=== PATIENT | male | born 1940 | race Caucasian/White ===

== ENCOUNTER 2017-07-16 07:09 | Day surgery (SDC) | payer OTHER, MEDICARE ==
[2017-07-15 14:52] VITALS: BMI 23.2
[2017-07-16] MEDS ORDERED: LIDOCAINE HCL/PF 2% SDV 5ML VIAL ONE (08:18)
[2017-07-16] MEDS ORDERED: PROPOFOL 20 ML ONE ×2 (08:18)
[2017-07-16 09:01] VITALS: TEMP 97.7
[2017-07-16 13:17] VITALS: BP 148/60; PULSE 58
--- NOTE | 2017-07-17 17:20 | PATH ---
Surgical Pathology Report Patient Name: CHELSEA DORANTES [facility]. Rec. #: [id number] /Age/Gender: 1940 (Age: 76) / M Account: [id number] Location: [facility]-ENDOSCOPY Taken: 07/16/2017 Received: 07/16/2017 Reported: 07/17/2017 Physicians: Everardo Hargrove M.D. Specimen(s) Received POLYP SIGMOID Clinical History Diverticular disease of the colon, history of adenoma Grade 1 hemorrhoids, severe universal diverticulosis, sigmoid polyp Final Diagnosis SIGMOID COLON, POLYP, BIOPSY: HYPERPLASTIC POLYP. Electronically Signed Colleen Cross M.D. Gross Description Received in formalin, labeled "biopsy sigmoid polyp" is a cervantes, irregular portion of soft tissue measuring 0.4 cm. in greatest dimension. The specimen is submitted in toto in one cassette. 07/16/201707/16/2017
== END 2017-07-16 10:00 | disposition home or self-care (01) ==
LOC: JASU-ENDO 07:09
PROVIDERS: ATTEND Internal Medicine Gastroenterology
PROC: 0DBN8ZX Excision of Sigmoid Colon, Via Natural or Artificial Opening Endoscopic, Diagnostic (ICD-10-PCS; principal; 2017-07-16 08:00)
DX: Z12.11 Encounter for screening for malignant neoplasm of colon (principal); Z86.010 Personal history of colon polyps; D12.5 Benign neoplasm of sigmoid colon; K57.30 Diverticulosis of large intestine without perforation or abscess without bleeding; K64.8 Other hemorrhoids
CPT/HCPCS: 88305-TC

== ENCOUNTER 2022-06-03 05:20 | Day surgery (SDC) | payer OTHER, MEDICARE ==
[2022-06-02 15:09] VITALS: BMI 25.2
[2022-06-03] MEDS ORDERED: EPINEPHrine 1:10,000 (P-F SYR) 1 MG/10 ML DISP.SYRIN IM ONE (12:07)
[2022-06-03 12:27] VITALS: TEMP 97.8
[2022-06-03] MEDS ORDERED: EPINEPHrine 1:10,000 (P-F SYR) 1 MG/10 ML DISP.SYRIN ONE (12:27)
[2022-06-03 13:01] VITALS: BP 124/56; PULSE 70; RESP 18
== END 2022-06-03 13:26 | disposition home or self-care (01) ==
LOC: JASU-ENDO 05:20
PROVIDERS: ATTEND Internal Medicine Gastroenterology
PROC: 3E0H8KZ Introduction of Other Diagnostic Substance into Lower GI, Via Natural or Artificial Opening Endoscopic (ICD-10-PCS; 2022-06-03)
PROC: 0DBN8ZX Excision of Sigmoid Colon, Via Natural or Artificial Opening Endoscopic, Diagnostic (ICD-10-PCS; principal; 2022-06-03 10:30)
DX: Z12.11 Encounter for screening for malignant neoplasm of colon (principal); D12.5 Benign neoplasm of sigmoid colon; K57.30 Diverticulosis of large intestine without perforation or abscess without bleeding; K55.20 Angiodysplasia of colon without hemorrhage; Z86.010 Personal history of colon polyps
CPT/HCPCS: 88305-TC

== ENCOUNTER 2023-09-29 04:36 | Day surgery (SDC) | payer OTHER, MEDICARE ==
[2023-09-23 15:19] VITALS: BMI 25.0
[2023-09-29 12:25] VITALS: BP 122/59; PULSE 62; RESP 14
[2023-09-29 12:27] VITALS: TEMP 98.7
== END 2023-09-29 12:51 | disposition home or self-care (01) ==
LOC: JASU-ENDO 04:36
PROVIDERS: ATTEND Internal Medicine Gastroenterology
PROC: 0DB78ZX Excision of Stomach, Pylorus, Via Natural or Artificial Opening Endoscopic, Diagnostic (ICD-10-PCS; 2023-09-29)
PROC: 0DB68ZX Excision of Stomach, Via Natural or Artificial Opening Endoscopic, Diagnostic (ICD-10-PCS; 2023-09-29)
PROC: 0DB48ZX Excision of Esophagogastric Junction, Via Natural or Artificial Opening Endoscopic, Diagnostic (ICD-10-PCS; principal; 2023-09-29 10:15)
DX: K29.50 Unspecified chronic gastritis without bleeding (principal); K44.9 Diaphragmatic hernia without obstruction or gangrene; K22.2 Esophageal obstruction; K21.00 Gastro-esophageal reflux disease with esophagitis, without bleeding; D50.9 Iron deficiency anemia, unspecified; I10 Essential (primary) hypertension
CPT/HCPCS: 88305-TC; 88342-TC

== ENCOUNTER 2024-11-18 12:50 | Inpatient (IN) | payer OTHER, MEDICARE ==
[2024-11-18 14:26] LABS: CHLORIDE 106 mmol/L (98-107); POTASSIUM 4.1 mmol/L (3.5-5.1); SODIUM 137 mmol/L (136-145)
[2024-11-18 14:30] LABS: CALCIUM 8.9 mg/dL (8.5-10.1)
[2024-11-18 14:31] LABS: ALBUMIN 3.8 g/dl (3.4-5.0); ANION GAP 6 mmol/L (4-13); BLOOD UREA NITROGEN 31.4 mg/dL (7-18); CO2 25 mmol/L (21-32)
[2024-11-18 14:34] LABS: SGOT/AST 50 U/L (15-37); SGPT/ALT 18 U/L (13-61)
[2024-11-18 14:35] LABS: N-TERMINAL BNP 450.7 pg/ml (5-450)
[2024-11-18 14:36] LABS: ALK PHOS 66 U/L (45-117); BASO % 1.2 % (0-2.0); BILIRUBIN,TOTAL 0.6 mg/dL (0.2-1); EOS % 1.2 % (0-4.5); HEMATOCRIT 27.4 % (35.4-49); HEMOGLOBIN 7.8 GM/dL (11.7-16.9); LYMPH % 5.4 % (8-40); MCHC 28.3 g/dl (32.0-35.9); MEAN CELL VOLUME 68.7 fl (80-96); MEAN PLT VOLUME 7.5 fl (7.5-11.1); MONO % 6.9 % (3.8-10.2); NEUT % 85.3 % (42.8-82.8); PLATELET COUNT 118 10^3/uL (134-434); RBC 3.98 M/mm3 (4.00-5.60); RDW 19.5 % (11.9-15.9); TOT PROT 7.1 g/dl (6.4-8.2); WHITE BLOOD COUNT 11.8 K/mm3 (4.0-10.0)
[2024-11-18 14:43] LABS: CREATININE 0.9 mg/dL (0.55-1.3); GLUCOSE,RANDOM 25 mg/dL (74-106); MCH 19.5 pg (25.7-33.7)
[2024-11-18] MEDS ORDERED: DEXTROSE 50%-WATER 25 GM/50 ML DISP.SYRIN ONE (14:49)
[2024-11-18] MEDS: DEXTROSE 50%-WATER - 25 GM/50 ML VIAL IVPUSH ONE ×2 (14:52)
[2024-11-18] MEDS: SODIUM CHLORIDE 0.9% 500 ML INFUS.BAG IV ONE (15:32)
[2024-11-18 15:48] LABS: ANISOCYTOSIS 2+; MACROCYTOSIS 0; OVALOCYTE 1+
[2024-11-18] MEDS ORDERED: DEXTROSE 50%-WATER - 25 GM/50 ML VIAL IVPUSH PRN (16:36)
[2024-11-18 21:04] VITALS: BMI 22.3
[2024-11-18 21:22] LABS: EOS % 2.1 % (0-4.5); HEMATOCRIT 23.8 % (35.4-49); LYMPH % 8.5 % (8-40); MCHC 28.7 g/dl (32.0-35.9); MEAN CELL VOLUME 67.3 fl (80-96); MEAN PLT VOLUME 8.1 fl (7.5-11.1); MONO % 7.9 % (3.8-10.2); NEUT % 80.5 % (42.8-82.8); PLATELET COUNT 101 10^3/uL (134-434); RBC 3.53 M/mm3 (4.00-5.60); RDW 19.3 % (11.9-15.9)
[2024-11-18 21:27] LABS: MCH 19.3 pg (25.7-33.7)
[2024-11-18 21:30] LABS: HEMOGLOBIN 6.8 GM/dL (11.7-16.9)
[2024-11-18] MEDS: D5-1/2NS+20 MEQ KCL - 20 MEQ/1,000 ML INFUS.BAG IV SCH (22:09)
[2024-11-18] MEDS: ATORVASTATIN CA 40 MG TABLET (FP) PO SCH (22:09)
[2024-11-19] MEDS ORDERED: DEXTROSE 50%-WATER 25 GM/50 ML DISP.SYRIN IVPUSH PRN
[2024-11-19] MEDS: LISINOPRIL 20 MG TABLET PO SCH (09:14)
[2024-11-19] MEDS: ASPIRIN 81 MG CHEWABLE TABLETS PO SCH (09:14)
[2024-11-19] MEDS: amLODIPine BESYLATE 10 MG TABLET (FP) PO SCH (09:14)
[2024-11-19] MEDS: PANTOPRAZOLE 20 MG TABLET PO SCH (09:14)
[2024-11-19] MEDS: metoPROLOL SUCCINATE 25 MG TAB.SR.24H (FP) PO SCH (09:14)
[2024-11-19 10:05] LABS: EOS % 5.1 % (0-4.5); HEMATOCRIT 33.3 % (35.4-49); HEMOGLOBIN 9.7 GM/dL (11.7-16.9); LYMPH % 7.1 % (8-40); MCH 21.5 pg (25.7-33.7); MCHC 29.1 g/dl (32.0-35.9); MEAN PLT VOLUME 7.1 fl (7.5-11.1); MONO % 6.9 % (3.8-10.2); NEUT % 78.9 % (42.8-82.8); PLATELET COUNT 106 10^3/uL (134-434); RDW 24.2 % (11.9-15.9); WHITE BLOOD COUNT 12.1 K/mm3 (4.0-10.0)
[2024-11-19 10:17] LABS: POTASSIUM 3.6 mmol/L (3.5-5.1)
[2024-11-19 10:19] LABS: ALBUMIN 3.6 g/dl (3.4-5.0); MAGNESIUM 1.7 mg/dL (1.8-2.4)
[2024-11-19 10:22] LABS: CREATININE 0.8 mg/dL (0.55-1.3)
[2024-11-19 10:24] LABS: TOT PROT 6.6 g/dl (6.4-8.2)
[2024-11-19 10:28] LABS: BILIRUBIN,TOTAL 2.6 mg/dL (0.2-1); CALCIUM 8.5 mg/dL (8.5-10.1)
[2024-11-20 07:28] LABS: BASO % 2.3 % (0-2.0); EOS % 9.4 % (0-4.5); HEMATOCRIT 30.7 % (35.4-49); HEMOGLOBIN 9.4 GM/dL (11.7-16.9); LYMPH % 8.2 % (8-40); MCH 22.1 pg (25.7-33.7); MCHC 30.4 g/dl (32.0-35.9); MEAN CELL VOLUME 72.7 fl (80-96); MEAN PLT VOLUME 7.8 fl (7.5-11.1); NEUT % 71.1 % (42.8-82.8); PLATELET COUNT 106 10^3/uL (134-434); RBC 4.23 M/mm3 (4.00-5.60); RDW 23.3 % (11.9-15.9); WHITE BLOOD COUNT 10.4 K/mm3 (4.0-10.0)
[2024-11-20 07:40] LABS: POTASSIUM 3.6 mmol/L (3.5-5.1)
[2024-11-20 07:59] LABS: BLOOD UREA NITROGEN 11.8 mg/dL (7-18)
[2024-11-20 08:01] LABS: CALCIUM 8.3 mg/dL (8.5-10.1)
[2024-11-20 08:02] LABS: ALBUMIN 3.3 g/dl (3.4-5.0); MAGNESIUM 1.8 mg/dL (1.8-2.4)
[2024-11-20 08:04] LABS: CREATININE 0.6 mg/dL (0.55-1.3)
[2024-11-20 08:06] LABS: TOT PROT 5.9 g/dl (6.4-8.2)
[2024-11-20 14:39] VITALS: BP 99/68; PULSE 76; RESP 18; TEMP 98.2
== END 2024-11-20 15:30 | disposition home or self-care (01) | DRG 812 ==
LOC: JER 12:50 → JERBED 15:06 → OBSVTOIN 16:29 → J4W 18:34
PROVIDERS: ADMIT Family Medicine; ATTEND Family Medicine
PROC: 30233N1 Transfusion of Nonautologous Red Blood Cells into Peripheral Vein, Percutaneous Approach (ICD-10-PCS; principal; 2024-11-19)
DX: D64.9 Anemia, unspecified (principal); E16.2 Hypoglycemia, unspecified; R55 Syncope and collapse; D69.6 Thrombocytopenia, unspecified; I10 Essential (primary) hypertension; E78.5 Hyperlipidemia, unspecified; S02.2XXA Fracture of nasal bones, initial encounter for closed fracture; W19.XXXA Unspecified fall, initial encounter; Y93.89 Activity, other specified; Y92.89 Other specified places as the place of occurrence of the external cause; Y99.8 Other external cause status
CPT/HCPCS: 0241U-QW; 36415; 36430; 70450-TC; 71046-TC-FY; 72125-TC; 76700-TC; 80053; 82272; 82438; 82533; 82607; 82728; 82962; 83036; 83525; 83540; 83550; 83615; 83735; 83880; 84302; 84443; 84466; 84484; 84681; 84999; 85025; 85045; 86850; 86900; 86901; 86922; 87633; 93005; 93010; 99285-25; G0378; P9058